=== PATIENT | male | born 1955 | race Caucasian/White ===

== ENCOUNTER 2018-10-08 08:31 | Day surgery (SDC) | payer OTHER ==
[~2018-10-08] VITALS: Ht 182.9 cm; Wt 94.3 kg
[~2018-10-08 08:31] MED LIST: ALLO100 PO; AMLO10 PO; ASPI81CH PO; ATOR10; ATOR20 PO; ATOR40TA PO; B/P MED; BENAML10/2; CADUET; COLE625 PO; ESOM20 PO; FENO160 PO; FENO54 PO; FEXO60; GABA600 PO; HYDACE5; HYDACE5 PO; HYDCHL25 PO; IBUP600 PO; LANS15EC; LISI20 PO; LISI5 PO; LOSA50 PO; LOSHYD100 PO; METF500 PO; METO50 PO; OMEP20ER PO; OXYACE5T; OXYACE5T PO; PRAV20 PO; TADA10TA; WARF2.5 PO; ZYRTEC10 M1 PO
--- NOTE | 2018-10-08 09:07 | NUR ---
History, Chart, Medications and Allergies reviewed before start of procedure. Patient states colon prep results clear. Patient States Post-Procedure ride home has been arranged.
--- NOTE | 2018-10-08 09:12 | NUR ---
10/08/18 0912 Dandy Devries 3-LEAD EKG REVIEWED WITH PHYSICIAN PRIOR TO START OF PROCEDURE. Patient to ENDO 1History, Chart, Medications and Allergies reviewed before start of procedure. MONITOR INTACT WITH CONTINUOUS PULSE OXIMETRY AND INTERMITTENT BP. O2 VIA N/C INTACT THROUGHOUT SEDATION/PROCEDURE. SEDATION WITH FENTANYL AND VERSED.
== END 2018-10-08 22:39 | disposition home or self-care (01) ==
LOC: ORSCMMR 08:31 → ORD 10:15 → ORSCMMR 10:15
PROVIDERS: Internal Medicine Gastroenterology
PROC: 0DBP8ZX Excision of Rectum, Via Natural or Artificial Opening Endoscopic, Diagnostic (ICD-10-PCS; principal; 2018-10-08 10:15)
PROC: 0DBN8ZX Excision of Sigmoid Colon, Via Natural or Artificial Opening Endoscopic, Diagnostic (ICD-10-PCS; principal; 2018-10-08 10:15)
PROC: 0DBL8ZX Excision of Transverse Colon, Via Natural or Artificial Opening Endoscopic, Diagnostic (ICD-10-PCS; principal; 2018-10-08 10:15)
PROC: 0DBM8ZX Excision of Descending Colon, Via Natural or Artificial Opening Endoscopic, Diagnostic (ICD-10-PCS; principal; 2018-10-08 10:15)
DX: Z12.11 Encounter for screening for malignant neoplasm of colon (principal); Z86.010 Personal history of colon polyps; D12.4 Benign neoplasm of descending colon; D12.5 Benign neoplasm of sigmoid colon; K63.5 Polyp of colon; K62.1 Rectal polyp; I48.91 Unspecified atrial fibrillation; Z79.01 Long term (current) use of anticoagulants; G47.33 Obstructive sleep apnea (adult) (pediatric); I10 Essential (primary) hypertension; E78.00 Pure hypercholesterolemia, unspecified; E11.9 Type 2 diabetes mellitus without complications; Z79.899 Other long term (current) drug therapy
CPT/HCPCS: 82947; 88305; J2250; J3010; J7120

== ENCOUNTER → 2021-08-16 | Outpatient (CLI) | payer OTHER ==
[2021-08-16 12:43] LABS: Creatinine Urine 44.3 mg/dL (27.00-270.00); Microalbumin, Urine Quant. 18.6 mg/L (0.000-20.000); Protein, Urine Quantitative 5.9 mg/dL (0.0-11.9)
== END | disposition home or self-care (01) ==
LOC: LAB SHORT 09:30 → LAB FUT 08-04 11:00 → EDSTATUS 08-04 11:00
PROVIDERS: Internal Medicine Nephrology
DX: N18.30 Chronic kidney disease, stage 3 unspecified (principal); D63.1 Anemia in chronic kidney disease; N25.81 Secondary hyperparathyroidism of renal origin; E55.9 Vitamin D deficiency, unspecified; E78.00 Pure hypercholesterolemia, unspecified; D51.8 Other vitamin B12 deficiency anemias; D52.8 Other folate deficiency anemias; D50.9 Iron deficiency anemia, unspecified; R76.9 Abnormal immunological finding in serum, unspecified; R94.5 Abnormal results of liver function studies; R94.6 Abnormal results of thyroid function studies
CPT/HCPCS: 81050; 82043; 82570; 84156